=== PATIENT | male | born 1935 | race Caucasian/White ===

== ENCOUNTER 2023-03-29 06:27 | Day surgery (SDC) | payer MEDICARE, BC ==
[2023-03-29] VITALS (7 sets, daily range): BP systolic 104–161; BP diastolic 61–89; PULSE 72–82; RESP 14–16; TEMP 97.9; O2SAT 94–97
[~2023-03-29] VITALS: Ht 172.7 cm; Wt 86.0 kg
[2023-03-29] MEDS ORDERED: TIRZ5PEN INJ (07:00)
[2023-03-29] MEDS ORDERED: APIX5TAB3 PO (07:00)
[2023-03-29] MEDS ORDERED: OMEP20TA23 PO (07:00)
[2023-03-29] MEDS ORDERED: ATOR40TA72 PO (07:00)
[2023-03-29] MEDS ORDERED: GABA-530 PO (07:00)
[2023-03-29] MEDS ORDERED: AMLO2.5T5 PO (07:00)
[2023-03-29] MEDS ORDERED: LOSA100T58 PO (07:00)
[2023-03-29] MEDS ORDERED: EZET10TA48 PO (07:00)
[2023-03-29] MEDS ORDERED: ATEN-236 PO (07:00)
[2023-03-29] MEDS ORDERED: normal saline 1000ml 1,000 ML IV SCH (07:05)
[2023-03-29 07:44] LABS: BASOPHILS % (AUTO) 0.5 % (0-1); EOSINOPHILS # (AUTO) 0.2 X10'3 (0-0.9); EOSINOPHILS % (AUTO) 3.8 % (0-6); HEMATOCRIT 48.2 % (42.0-52.0); HEMOGLOBIN 15.7 g/dl (14.0-17.9); LYMPHOCYTES # (AUTO) 1.4 X10'3 (1.1-4.8); LYMPHOCYTES % (AUTO) 22.8 % (21-51); MEAN CORPUSCULAR HEMOGLOBIN 28.6 PG (27.0-31.0); MEAN CORPUSCULAR HGB CONC 32.6 g/dL (33.0-36.5); MEAN CORPUSCULAR VOLUME 87.7 FL (78-98); MEAN PLATELET VOLUME 8.5 FL (7.4-10.4); MONOCYTES # (AUTO) 0.9 X10'3 (0-0.9); MONOCYTES % (AUTO) 14.5 % (2-12); NEUTROPHILS # (AUTO) 3.5 X10'3 (1.8-7.7); NEUTROPHILS % (AUTO) 58.4 % (42-75); PLATELET COUNT 140 X10'3 (140-440); RED BLOOD COUNT 5.49 X10'6 (4.70-6.10); RED CELL DISTRIBUTION WIDTH 18.7 % (11.5-14.5); WHITE BLOOD COUNT 6.1 X10'3 (4.5-11.0)
[2023-03-29 07:51] LABS: ALBUMIN 3.3 G/DL (3.4-5.0); ANION GAP 5 (8-16); BLOOD UREA NITROGEN 21 MG/DL (7-18); BUN/CREATININE RATIO 16.3 (10.0-20.0); CALCIUM 9.1 MG/DL (8.5-10.1); CHLORIDE 105 MMOL/L (99-107); CREATININE 1.29 MG/DL (0.60-1.10); GLUCOSE 106 MG/DL (70-104); POTASSIUM 4.7 MMOL/L (3.5-5.1); SODIUM 140 MMOL/L (135-145); TOTAL CARBON DIOXIDE 29.8 MMOL/L (24-32); eCRCL 38 ML/MIN; eGFR 53 ML/MIN
[2023-03-29] MEDS ORDERED: cefazolin 2gm/D5W 100mL 100 ML IV ONE (07:55)
[2023-03-29] MEDS ORDERED: vancomycin 1,500 MG in NS 300ml IV soln IV ONE (07:55)
[2023-03-29 07:56] LABS: INR 1.1 INR; PROTHROMBIN TIME 11.9 SECONDS (9.0-12.0)
[2023-03-29] MEDS ORDERED: vancomycin 1,000mg inj ONE (08:21)
[2023-03-29] MEDS ORDERED: LIDOcaine 1% W/epiNEPHrine 1:100,000 20ml vial ONE (08:21)
[2023-03-29] MEDS ORDERED: midazolam 1 mg/ML 2ml injection ONE ×2 (08:21→09:03)
[2023-03-29] MEDS ORDERED: fentaNYL/PF 50MCG/1 ML 2ML syringe ONE (08:21)
[2023-03-29 08:41] LABS: PLATELET ESTIMATE NORMAL
[2023-03-29 08:42] LABS: ANISOCYTOSIS 2+; ELLIPTOCYTES 1+; HYPOCHROMASIA 1+
== END 2023-03-29 11:45 | disposition home or self-care (01) ==
LOC: SSTAY O 06:27
PROVIDERS: ATTEND Internal Medicine Cardiovascular Disease
DX: Z45.010 Encounter for checking and testing of cardiac pacemaker pulse generator [battery] (principal); I25.10 Atherosclerotic heart disease of native coronary artery without angina pectoris; I48.20 Chronic atrial fibrillation, unspecified; E78.5 Hyperlipidemia, unspecified; I10 Essential (primary) hypertension; Z79.01 Long term (current) use of anticoagulants; Z79.899 Other long term (current) drug therapy
CPT/HCPCS: 33228; 36415; 80048; 85025; 85610; 93005; 99152; 99153; C1785; J0690; J2250; J3010; J3370; J3490; J7030; 85008; A6258